=== PATIENT | male | born 1925 | race Two or more races ===

== ENCOUNTER 2016-02-19 02:03 | Emergency (ER) | payer MEDICARE, OTHER ==
[~2016-02-19] VITALS: Ht 177.8 cm; Wt 81.6 kg
[~2016-02-19 02:03] MED LIST: ATORVASTATIN CA20 MG ORAL; CARVEDILOL3.125 MG ORAL; CLOPIDOGREL75 MG ORAL; COUMADIN6 MG ORAL; DOC-Q-LACE100 M1 ORAL; FUROSEMIDE40 MG ORAL; LISINOPRIL2.5 MG ORAL; SPIRONOLACTONE100 MG ORAL; TAMSULOSIN HCL0.4 MG ORAL; TRAMADOL HCL50 MG ORAL; WARFARIN SODIUM6 MG ORAL; ZAROXOLYN5 MG ORAL
[2016-02-19 02:24] VITALS: BP 174/91
[2016-02-19 03:05] LABS: BASOPHILS % (AUTO) 1.4 % (0.0-2.0); EOSINOPHILS % (AUTO) 6.3 % (0.0-3.0); LYMPHOCYTES % (AUTO) 39.5 % (20.0-45.0); MEAN CORPUSCULAR HEMOGLOBIN 26.9 PG (27.0-31.0); MEAN CORPUSCULAR HGB CONC 30.7 G/DL (32.0-36.0); MEAN CORPUSCULAR VOLUME 88 FL (80-99); MEAN PLATELET VOLUME 7.6 FL (6.5-10.1); MONOCYTES % (AUTO) 9.1 % (1.0-10.0); NEUTROPHILS % (AUTO) 43.8 % (45.0-75.0); PLATELET COUNT 109 K/UL (150-450); RED CELL DISTRIBUTION WIDTH 14.6 % (11.6-14.8); WHITE BLOOD COUNT 3.8 K/UL (4.8-10.8)
[2016-02-19 03:17] LABS: INR 1.9 (0.9-1.1); PROTHROMBIN TIME 19.6 SEC (9.30-11.50)
[2016-02-19 03:22] LABS: ANION GAP 11 (5-15); CALCIUM 9.5 mg/dL (8.6-10.2); CARBON DIOXIDE 29 mEQ/L (20-30); CHLORIDE 96 mEQ/L (98-107); CREATININE 1.5 mg/dL (0.7-1.2); HEMOLYSIS 0; POTASSIUM 4.9 mEQ/L (3.4-4.9); SODIUM 136 mEQ/L (135-145)
--- NOTE | 2016-02-19 03:49 | Emergency Room Report ---
History of Present Illness General Chief Complaint: Hypertension Source: Patient, Medical Record Present Illness HPI Is an 89-year-old male with a history of chronic A. fib and sick sinus syndrome, status post recent pacemaker insertion this month. He also has a history hypertension. He presents with chief complaint of hypertension. He was taking his blood pressure at home and it was 160 systolic. 15 minutes later he took it again it was 200. He got concerned and call his family to bring him in. He has no symptoms. Denies any nausea vomiting. Denies any chest pain. Denies any other complaint. Allergies: Coded Allergies: No Known Allergies (Unverified , 06/05/15) Patient History Past Medical History: see triage record, old chart reviewed, HTN, AFib Past Surgical History: pacemaker, other Pertinent Family History: none Social History: Denies: smoking Immunizations: other Reviewed Nursing Documentation: PMH: Agreed, PSxH: Agreed Nursing Documentation-PMH Hx Cardiac Problems: Yes - "problem with my heart", A-fib, high cholesterol Hx Hypertension: Yes Hx Cancer: No Hx Gastrointestinal Problems: No Hx Neurological Problems: No Hx Dementia: No Review of Systems Eye: Denies: blurred vision, eye pain ENT: Denies: ear pain, nose congestion, throat swelling Respiratory: Denies: cough, shortness of breath Cardiovascular: Denies: chest pain, palpitations Gastrointestinal: Denies: abdominal pain, diarrhea, nausea, vomiting Musculoskeletal: Denies: back pain, joint pain Skin: Denies: rash Neurological: Denies: headache, numbness Endocrine: Denies: increased thirst, increased urine Hematologic/Lymphatic: Denies: easy bruising All Other Systems: negative except mentioned in HPI Physical Exam Vital Signs Date Time Temp Pulse Resp B/P Pulse Ox O2 Delivery O2 Flow Rate FiO2 02/19/16 02:09 97.9 128 20 148/97 93 Room Air vitals with hypertension and tachycardia Sp02 EP Interpretation: reviewed, normal General Appearance: well appearing, no apparent distress, alert Head: normocephalic, atraumatic Eyes: bilateral eye EOMI, bilateral eye PERRL ENT: hearing grossly normal, normal pharynx Neck: full range of motion, supple, no meningismus Respiratory: chest non-tender, lungs clear, normal breath sounds Cardiovascular #1: no murmur, irregularly irregular - Heart rate 98 Gastrointestinal: normal bowel sounds, non tender, no mass, no organomegaly, no bruit, non-distended Musculoskeletal: back normal, gait/station normal, normal range of motion, swelling - 1+ edema Psychiatric: mood/affect normal Skin: warm/dry Medical Decision Making Diagnostic Impression: Primary Impression: Hypertension Qualified Codes: I10 - Essential (primary) hypertension Additional Impressions: Renal insufficiency Atrial fibrillation with controlled ventricular response ER Course Patient presents with hypertension. Her blood pressure remained systolic 150- 160 here. Heart rate is controlled. He has no evidence of ACS, PE, dissection , CHF. Lab Results Impression labs unremarkable Rhythm Strip Diag. Results EP Interpretation: yes Rate: 98 Rhythm: no PVC's, no ectopy, other - A. fib Last Vital Signs Date Time Temp Pulse Resp B/P Pulse Ox O2 Delivery O2 Flow Rate FiO2 02/19/16 02:54 86 29 Room Air 02/19/16 02:24 97.3 174/91 100 Status: improved Disposition: HOME, SELF-CARE Condition: Stable Patient Instructions: High Blood Pressure (Hypertension) Additional Instructions: Take your medication. Followup with your DrBindu in 2-3 days. Return if worse. TOÑITO CHOW M.D. Feb 19, 2016 03:48
[2016-02-19 04:24] VITALS: BP 152/80
[2016-02-19 05:45] VITALS: BP 137/79
[2016-02-19 05:56] LABS: TROPONIN I < 0.30 ng/mL (<=0.30)
[2016-02-19 06:07] LABS: TROPONIN I < 0.30 ng/mL (<=0.30)
[2016-02-19 07:13] VITALS: BP 145/66
[2016-02-19 07:47] VITALS: BP 145/66
--- NOTE | 2016-02-19 10:24 | Diagnostic Imaging Report ---
Indication: SOB Technique: One view of the chest Comparison: 01/24/2016 Findings: Better exposure on current exam. The heart size is upper limits normal. Lungs and pleural spaces are clear. Previously demonstrated interstitial congestion is no longer evident There is a left chest unifocal pacemaker. Impression: No acute process
== END 2016-02-19 07:48 | disposition left against medical advice (07) ==
LOC: EMR 03:55 → EDBEDREQ 05:09 → EMR 07:48
DX: I10 Essential (primary) hypertension (principal); I50.9 Heart failure, unspecified; I42.9 Cardiomyopathy, unspecified; N28.9 Disorder of kidney and ureter, unspecified; I48.91 Unspecified atrial fibrillation; I49.5 Sick sinus syndrome; E78.00 Pure hypercholesterolemia, unspecified; Z95.0 Presence of cardiac pacemaker
CPT/HCPCS: 36415; 71010; 80048; 83880; 84484; 85025; 85610; 93005; 96374; 96375; 99284; J0360; J1940